=== PATIENT | female | born 1945 | race Caucasian/White ===

== ENCOUNTER 2016-08-28 19:22 | Emergency (ER) | payer OTHER ==
[~2016-08-28] VITALS: Ht 157.5 cm; Wt 48.9 kg
[~2016-08-28 19:22] MED LIST: ALBU8.5H3 INH; ALEN70TA5 PO; AZIT250T PO; BUSP10TA PO; CEPH-368 PO; CITA40TA5 PO; CLON0.5T20 PO; LISI-167 PO; OLME20TA PO; ONDA4TAB10 PO; TIOT18CA INH; TRAZ100T15 PO
[2016-08-28 19:34] VITALS: BP 186/69
[2016-08-28] MEDS ORDERED: HYDROcodone/APAP 5/325 TABLET ONE (19:51)
[2016-08-28] MEDS ORDERED: DIPH,PERTUSS(ACELL),TET VAC/PF 0.5 ML IM-VACC ONE ×2 (19:52→20:00)
[2016-08-28] MEDS ORDERED: LIDOCAINE 1%, 20ML ONE (19:52)
[2016-08-28] MEDS ORDERED: LIDOCAINE 1%, 20ML SQ ONE (20:00)
[2016-08-28] MEDS ORDERED: HYDROcodone/APAP 5/325 TABLET PO ONE (20:00)
== END 2016-08-28 21:48 | disposition home or self-care (01) ==
LOC: ED 21:42
DX: S51.812A Laceration without foreign body of left forearm, initial encounter (principal); S60.222A Contusion of left hand, initial encounter; S69.92XA Unspecified injury of left wrist, hand and finger(s), initial encounter; J45.909 Unspecified asthma, uncomplicated; I10 Essential (primary) hypertension; F32.9 Major depressive disorder, single episode, unspecified; J44.9 Chronic obstructive pulmonary disease, unspecified; Z90.710 Acquired absence of both cervix and uterus; Z90.49 Acquired absence of other specified parts of digestive tract; Z88.0 Allergy status to penicillin; Z87.891 Personal history of nicotine dependence; V43.52XA Car driver injured in collision with other type car in traffic accident, initial encounter; Y93.89 Activity, other specified; Y99.8 Other external cause status; Y92.488 Other paved roadways as the place of occurrence of the external cause
CPT/HCPCS: 12001; 90471; 90715

== ENCOUNTER 2016-08-30 11:25 | Emergency (ER) | payer OTHER ==
[~2016-08-30] VITALS: Ht 157.5 cm; Wt 48.0 kg
[2016-08-30 11:41] VITALS: BP 164/84
[2016-08-30] MEDS ORDERED: HYDROcodone/APAP 5/325 TABLET PO ONE (12:30)
[2016-08-30] MEDS ORDERED: HYDROcodone/APAP 5/325 TABLET ONE (12:36)
== END 2016-08-30 12:51 | disposition home or self-care (01) ==
LOC: ED 12:23
DX: S60.221A Contusion of right hand, initial encounter (principal); J45.909 Unspecified asthma, uncomplicated; J44.9 Chronic obstructive pulmonary disease, unspecified; I10 Essential (primary) hypertension; Z90.49 Acquired absence of other specified parts of digestive tract; Z90.710 Acquired absence of both cervix and uterus; Z88.0 Allergy status to penicillin; Z87.891 Personal history of nicotine dependence; V89.2XXA Person injured in unspecified motor-vehicle accident, traffic, initial encounter; Y93.89 Activity, other specified; Y92.89 Other specified places as the place of occurrence of the external cause; Y99.8 Other external cause status
CPT/HCPCS: 29125

== ENCOUNTER 2017-11-05 19:38 | Emergency (ER) | payer OTHER ==
[~2017-11-05] VITALS: Ht 154.9 cm; Wt 47.7 kg
[~2017-11-05 19:38] MED LIST changes: -ALBU8.5H3 INH; +ALBU8.5H8 INH; -OLME20TA PO; +OLME20TA17 PO
[2017-11-05 20:44] LABS: BASOPHILS # (AUTO) 0.04 x10^3/uL (0-0.1); BASOPHILS % (AUTO) 1 % (0-1); EOSINOPHILS # (AUTO) 0.17 x10^3/uL (0-0.4); EOSINOPHILS % (AUTO) 2 % (1-7); LYMPHOCYTES % (AUTO) 28 % (22-44); MD NO; MEAN CORPUSCULAR HEMOGLOBIN 30.6 pg (27.0-34.8); MEAN CORPUSCULAR HGB CONC 33.7 g/dL (32.4-35.8); MEAN CORPUSCULAR VOLUME 90.8 fL (80-100); MEAN PLATELET VOLUME 6.3 fL (7.4-10.4); MONOCYTES # (AUTO) 0.46 x10^3/uL (0.2-0.8); MONOCYTES % (AUTO) 6 % (2-9); NEUTROPHILS % (AUTO) 63 % (42-75); PLATELET COUNT 299 x10^3/uL (130-400); RED BLOOD COUNT 4.37 x10^6/uL (3.82-5.3)
[2017-11-05 20:51] LABS: INTERNATIONAL NORMALIZED RATIO 1.02 (0.93-1.1); PROTHROMBIN TIME 10.5 Seconds (9.6-11.5)
[2017-11-05 20:53] LABS: ALBUMIN 4.1 g/dL (3.4-5.0); ANION GAP 6 mmol/L (5-15); CALCIUM 8.7 mg/dL (8.5-10.1); CHLORIDE 99 mmol/L (98-107)
[2017-11-05] MEDS ORDERED: HYDROcodone/APAP 5/325 TABLET PO ONE (21:00)
[2017-11-05] MEDS ORDERED: HYDROcodone/APAP 5/325 TABLET ONE (21:18)
[2017-11-05] MEDS ORDERED: BACITRACIN ZINC OINT 500U/GM, 0.9 GM ONE (21:50)
[2017-11-05 22:17] VITALS: BP 155/79
== END 2017-11-05 22:39 | disposition home or self-care (01) ==
LOC: ED 22:00
DX: S09.90XA Unspecified injury of head, initial encounter (principal); S70.02XA Contusion of left hip, initial encounter; S23.3XXA Sprain of ligaments of thoracic spine, initial encounter; I10 Essential (primary) hypertension; J44.9 Chronic obstructive pulmonary disease, unspecified; Z90.49 Acquired absence of other specified parts of digestive tract; Z87.891 Personal history of nicotine dependence; W19.XXXA Unspecified fall, initial encounter; Y93.89 Activity, other specified; Y92.89 Other specified places as the place of occurrence of the external cause; Y99.8 Other external cause status
CPT/HCPCS: 36415; 70450; 72192; 80048; 82040; 85025; 85610; 85730; 99285

== ENCOUNTER 2017-11-15 10:56 | Emergency (ER) | payer OTHER ==
[~2017-11-15] VITALS: Ht 157.5 cm; Wt 48.4 kg
[2017-11-15 10:59] VITALS: BP 144/77
== END 2017-11-15 13:57 | disposition home or self-care (01) ==
LOC: ED 13:40
DX: S73.112A Iliofemoral ligament sprain of left hip, initial encounter (principal); J44.9 Chronic obstructive pulmonary disease, unspecified; Z87.891 Personal history of nicotine dependence; W19.XXXA Unspecified fall, initial encounter; Y93.89 Activity, other specified; Y99.8 Other external cause status; Y92.009 Unspecified place in unspecified non-institutional (private) residence as the place of occurrence of the external cause
CPT/HCPCS: 99284

== ENCOUNTER 2017-11-27 13:10 | Emergency (ER) | payer OTHER ==
[~2017-11-27] VITALS: Ht 154.9 cm; Wt 47.4 kg
[2017-11-27 13:15] VITALS: BP 168/76
== END 2017-11-27 14:52 | disposition home or self-care (01) ==
LOC: ED 14:48
DX: S76.012A Strain of muscle, fascia and tendon of left hip, initial encounter (principal); J44.9 Chronic obstructive pulmonary disease, unspecified; F32.9 Major depressive disorder, single episode, unspecified; X58.XXXA Exposure to other specified factors, initial encounter; Y93.89 Activity, other specified; Y99.8 Other external cause status; Y92.89 Other specified places as the place of occurrence of the external cause
CPT/HCPCS: 99284

== ENCOUNTER 2018-10-17 13:33 | Emergency (ER) | payer MEDICARE, OTHER ==
[~2018-10-17] VITALS: Ht 154.9 cm; Wt 42.5 kg
[~2018-10-17 13:33] MED LIST changes: -ALEN70TA5 PO; +ALEN70TA6 PO; +TRAZ-137 PO; -TRAZ100T15 PO
[2018-10-17 13:51] VITALS: BP 123/58
--- NOTE | 2018-10-17 14:14 | NUR ---
MECHANICAL GLF 2 DAYS AGO, "IT HURTS FROM MY TAILBONE TO MY NECK" DENIES LOC, C-SPINE TENDERNESS, CMS INTACT X4. DENIES BOWEL/BLADDER ABNORMALITY. AMBULATORY.
[2018-10-17] MEDS ORDERED: IBUPROFEN 200 MG TABLET ONE (14:30)
[2018-10-17] MEDS ORDERED: IBUPROFEN 200 MG TABLET PO ONE (14:30)
--- NOTE | 2018-10-17 14:34 | NUR ---
MEDICATED PER EMAR FOR SPINAL PAIN AT 11/10 NEURO EXAM REMAINS UNREMARKABLE
--- NOTE | 2018-10-17 15:09 | NUR ---
Provider to bedside to rexamine patient as now reporting right posterior rib pain-existing imaging sufficent. pain remains roughly 5-6/10
== END 2018-10-17 15:35 | disposition home or self-care (01) ==
LOC: ED 15:15
DX: G89.11 Acute pain due to trauma (principal); M54.5 Low back pain; Z87.891 Personal history of nicotine dependence; W18.30XA Fall on same level, unspecified, initial encounter; Y93.89 Activity, other specified; Y92.89 Other specified places as the place of occurrence of the external cause; Y99.8 Other external cause status
CPT/HCPCS: 72110; 99283

== ENCOUNTER 2018-12-29 13:50 | Emergency (ER) | payer MEDICARE ==
[~2018-12-29] VITALS: Ht 154.9 cm; Wt 42.7 kg
[2018-12-29 13:54] VITALS: BP 134/63
== END 2018-12-29 15:28 | disposition home or self-care (01) ==
LOC: ED 15:22
DX: S22.42XA Multiple fractures of ribs, left side, initial encounter for closed fracture (principal); G89.11 Acute pain due to trauma; R07.89 Other chest pain; I10 Essential (primary) hypertension; F32.9 Major depressive disorder, single episode, unspecified; F41.1 Generalized anxiety disorder; J44.9 Chronic obstructive pulmonary disease, unspecified; Z87.891 Personal history of nicotine dependence; W06.XXXA Fall from bed, initial encounter; Y93.89 Activity, other specified; Y92.009 Unspecified place in unspecified non-institutional (private) residence as the place of occurrence of the external cause; Y99.8 Other external cause status
CPT/HCPCS: 99283

== ENCOUNTER 2019-02-10 10:34 | Emergency (ER) | payer MEDICARE ==
[~2019-02-10] VITALS: Ht 154.9 cm; Wt 43.5 kg
[2019-02-10 10:40] VITALS: BP 155/81
[2019-03-06] MEDS ORDERED: ALPR0.257 SL (14:14)
[2019-03-06] MEDS ORDERED: HYDR-826 PO (14:14)
[2019-03-06] MEDS ORDERED: LISI-170 PO (14:14)
[2019-03-08] MEDS ORDERED: FAMO20TA7 PO (12:14)
[2019-03-08] MEDS ORDERED: AMLO-150 PO (12:14)
[2019-03-08] MEDS ORDERED: MULT-484 PO (12:14)
== END 2019-02-10 11:53 | disposition home or self-care (01) ==
LOC: ED 11:41
DX: F41.9 Anxiety disorder, unspecified (principal); I10 Essential (primary) hypertension; J45.909 Unspecified asthma, uncomplicated; F32.9 Major depressive disorder, single episode, unspecified; J44.9 Chronic obstructive pulmonary disease, unspecified; Z76.0 Encounter for issue of repeat prescription; Z90.49 Acquired absence of other specified parts of digestive tract; Z90.710 Acquired absence of both cervix and uterus; Z88.0 Allergy status to penicillin; Z87.891 Personal history of nicotine dependence
CPT/HCPCS: 99281

== ENCOUNTER 2020-12-08 11:51 | Emergency (ER) | payer MEDICARE ==
[~2020-12-08] VITALS: Ht 154.9 cm; Wt 46.1 kg
[~2020-12-08 11:51] MED LIST changes: -ALEN70TA6 PO; +ALEN70TA77 PO; +ALPR0.257 SL; +AMLO-150 PO; +FAMO20TA7 PO; +HYDR-826 PO; +LISI-170 PO; +MULT-484 PO; -TRAZ-137 PO; +TRAZ-175 PO
--- NOTE | 2020-12-08 12:39 | NUR ---
INITINAL CONTACT WITH PT: PER PT LOW ABD CRAMPING, BRIGHT RED BLEEDING NOTED IN TOILET WITH URINATION THIS AM.PAIN WITH URINATION. PT WITH STEADY GAIT TO ROOM. ATTACHED TO MONITORS. VSS. GRIGSBY.
[2020-12-08 13:19] LABS: MICROSCOPIC INDICATED
--- NOTE | 2020-12-08 13:28 | NUR ---
PT RESTING IN BED. VSMason. SEB.
[2020-12-08 13:56] LABS: ALANINE AMINOTRANSFERASE 19 U/L (12-78); ALBUMIN 3.8 g/dL (3.4-5.0); ANION GAP 6 mmol/L (5-15); CALCIUM 8.6 mg/dL (8.5-10.1); CHLORIDE 100 mmol/L (98-107); CREATININE 0.89 mg/dL (0.55-1.02)
[2020-12-08 13:58] LABS: ALKALINE PHOSPHATASE 87 U/L (45-117); BILIRUBIN,TOTAL 0.6 mg/dL (0.2-1.0); TOTAL PROTEIN 6.9 g/dL (6.4-8.2)
[2020-12-08 14:20] LABS: BASOPHILS % (AUTO) 0 % (0-1); EOSINOPHILS % (AUTO) 1 % (1-7); LYMPHOCYTES % (AUTO) 14 % (22-44); MEAN CORPUSCULAR HEMOGLOBIN 30.3 pg (27.0-34.8); MEAN CORPUSCULAR HGB CONC 33.1 g/dL (32.4-35.8); MEAN PLATELET VOLUME 6.2 fL (7.4-10.4); MONOCYTES % (AUTO) 8 % (2-9); NEUTROPHILS % (AUTO) 76 % (42-75); PLATELET COUNT 314 x10^3/uL (130-400); RED BLOOD COUNT 4.92 x10^6/uL (3.82-5.3); RED CELL DISTRIBUTION WIDTH 15.7 % (9.6-15.2)
[2020-12-08 14:46] VITALS: BP 122/60
--- NOTE | 2020-12-08 15:11 | NUR ---
Patient given discharge instructions and they have confirmed that they understand the instructions. Patient ambulatory with steady gait. NAD, all questions answered appropriately, denies additional needs at this time. No personal belongings left in room after discharge.
== END 2020-12-08 15:12 | disposition home or self-care (01) ==
LOC: ED 15:00
DX: N30.01 Acute cystitis with hematuria (principal); I10 Essential (primary) hypertension; J44.9 Chronic obstructive pulmonary disease, unspecified; Z90.49 Acquired absence of other specified parts of digestive tract; Z90.710 Acquired absence of both cervix and uterus; Z87.891 Personal history of nicotine dependence
CPT/HCPCS: 36415; 80053; 81001; 85025; 87077; 87086; 87186; 99283

== ENCOUNTER 2020-12-17 11:00 | Emergency (ER) | payer MEDICARE ==
[~2020-12-17] VITALS: Ht 157.5 cm; Wt 45.4 kg
--- NOTE | 2020-12-17 11:23 | NUR ---
PATIENT WALKED BACK FROM TRIAGE WITH CHIEF C/O "LOW OXYGEN LEVELS." PER PATIENT O2 WAS LOW 80'S YESTERDAY AT PCP'S OFFICE. PATIENT TOLD TO COME TO ED IF OXYGEN LEVELS STILL LOW UNTIL HOME O2 CAN BE ESTABLISHED. NADN, CONNECTED TO MONITOR, O2 SATURATION 97% ON 4 LPM NC, OTHER VSS, CALL LIGHT WITHIN REACH.
--- NOTE | 2020-12-17 11:40 | NUR ---
ERMD AT BEDSIDE FOR EVALUATION.
[2020-12-17] MEDS ORDERED: ALBUTEROL/IPRATROPIUM 2.5MG/0.5MG, 3 ML NPPB ONE (12:00)
[2020-12-17 12:17] LABS: BASOPHILS % (AUTO) 0 % (0-1); EOSINOPHILS % (AUTO) 2 % (1-7); LYMPHOCYTES % (AUTO) 16 % (22-44); MEAN CORPUSCULAR HEMOGLOBIN 30.7 pg (27.0-34.8); MEAN CORPUSCULAR HGB CONC 33.7 g/dL (32.4-35.8); MEAN PLATELET VOLUME 6.2 fL (7.4-10.4); MONOCYTES % (AUTO) 14 % (2-9); NEUTROPHILS % (AUTO) 68 % (42-75); PLATELET COUNT 271 x10^3/uL (130-400); RED CELL DISTRIBUTION WIDTH 14.6 % (9.6-15.2)
[2020-12-17 12:27] LABS: ALANINE AMINOTRANSFERASE 24 U/L (12-78); ALBUMIN 3.6 g/dL (3.4-5.0); ANION GAP 5 mmol/L (5-15); CALCIUM 8.7 mg/dL (8.5-10.1); CHLORIDE 96 mmol/L (98-107); CREATININE 0.57 mg/dL (0.55-1.02)
[2020-12-17 12:31] LABS: ALKALINE PHOSPHATASE 85 U/L (45-117); BILIRUBIN,TOTAL 0.5 mg/dL (0.2-1.0); TOTAL PROTEIN 6.9 g/dL (6.4-8.2)
[2020-12-17] MEDS ORDERED: DIPHENHYDRAMINE 50 MG/ML, 1ML IVPush ONE (13:00)
[2020-12-17] MEDS ORDERED: METOCLOPRAMIDE 5 MG/ML, 2ML IVPush ONE (13:00)
--- NOTE | 2020-12-17 13:02 | NUR ---
PATIENT SITTING IN GURNEY, NADN, CONNECTED TO MONITOR, VSS, FAMILY AT BEDSIDE, CALL LIGHT WITHIN REACH. WAITING FOR HOME 02 TO BE SET UP.
--- NOTE | 2020-12-17 13:10 | NUR ---
ERMD AT BEDSIDE TO DISCUSS POC.
--- NOTE | 2020-12-17 13:14 | NUR ---
THROUGHPUT RN NOTE: HOME OXYGEN ORDERED BY MD JASON. PT SIGNED DME CHOICE FORM REQUESTING [facility] FOR HOME OXYGEN DELIVERY. ORDER AND PERTINENT INFO FAXXED TO [facility]. PHYLLIS ANDRADE HAS VERIFIED THAT [facility] WILL ACCEPT PT'S INSURANCE.
--- NOTE | 2020-12-17 13:41 | NUR ---
[facility] CONNECTED TO MONITOR, VSS, FAMILY AT BEDSIDE, CALL LIGHT WITHIN REACH. UPDATED PATIENT ON HOME OXYGEN STATUS.
[2020-12-17 13:53] VITALS: BP 126/62
--- NOTE | 2020-12-17 14:03 | NUR ---
THROUGHPUT RN NOTE: FAX CONFIRMATION RECEIPT RECEIVED FROM [facility]. THIS RN CALLED A PREPARATION ROOM WORKER FROM [employer] [facility] AND ALSO GAVE PHONE ORDER PER POLICY FOR AFTER HOURS (WEEKEND) OXYGEN ORDER AND DELIVERY. [facility] PREPARATION ROOM WORKER CONFIRMED THAT ALL INFORMATION REQUIRED HAS BEEN RECEIVED AND NO FURTHER INPUT FROM HOSPITAL IS REQUIRED. PT GIVEN PORTABLE OXYGEN TANK FOR TRANSPORT HOME FROM [facility]. PT GIVEN PHONE NUMBER FOR [facility] AND INSTRUCTED TO CALL WHEN AT HOME. [employer] [facility] PICKLE PROCESSOR CONFIRMS THAT PT WILL RECEIVE OXYGEN TODAY, DELIVERY TO OCCUR ONCE PT CALLS [facility] TO CONFIRM SHE IS HOME. PT VERBALIZES UNDERSTANDING.
--- NOTE | 2020-12-17 14:34 | NUR ---
Patient given discharge instructions and they have confirmed that they understand the instructions. Patient ambulatory with steady gait, educated on oxygen tank use. NAD, all questions answered appropriately, denies additional needs at this time. No personal belongings left in room after discharge.
== END 2020-12-17 14:35 | disposition home or self-care (01) ==
LOC: ED 12:21
DX: J96.11 Chronic respiratory failure with hypoxia (principal); J44.9 Chronic obstructive pulmonary disease, unspecified; E87.1 Hypo-osmolality and hyponatremia; I10 Essential (primary) hypertension; Z87.891 Personal history of nicotine dependence; Z90.49 Acquired absence of other specified parts of digestive tract
CPT/HCPCS: 36415; 71045; 80053; 83880; 85025; 93005; 94640; 99285